=== PATIENT | male | born 1995 | race African-American/Black ===

== ENCOUNTER 2022-01-07 14:10 | Emergency (ER) | payer OTHER ==
[~2022-01-07] VITALS: Ht 172.7 cm; Wt 62.0 kg
[2022-01-07 14:13] VITALS: BP 113/79
[2022-01-07] MEDS ORDERED: PIPERACILLIN/TAZ 3.375G PREMIX 50 ML IV ONE (15:00)
[2022-01-07] MEDS ORDERED: SODIUM CHLORIDE 0.9% 1000ML BAG (SEPSIS BOLUS) IV ONE (15:00)
[2022-01-07 15:21] LABS: BASOPHILS % 0.4 % (0.0-2.0); EOSINOPHILS % 1.5 % (0.0-5.0); HEMOGLOBIN. 12.9 g/dL (14.0-18.0); LYMPHOCYTES % 13.7 % (20.0-50.0); MEAN CORPUSCULAR HEMOGLOBIN 31.5 pg (28.0-32.0); MEAN CORPUSCULAR VOLUME 92.5 fL (80.0-94.0); MEAN PLATELET VOLUME 8.2 fl (7.4-10.4); MONOCYTES % 4.1 % (2.0-8.0); NEUTROPHILS % 80.3 % (40.0-76.0); PLATELET 343 x1000/uL (130-400); RED BLOOD CELL COUNT 4.11 mill/uL (4.7-6.1); RED CELL DISTRIBUTION WIDTH 12.1 % (11.6-14.6)
[2022-01-07 15:30] LABS: CHLORIDE 110 mEq/L (98-107)
[2022-01-07] MEDS ORDERED: CEPH500C2 MT (17:39)
[2022-01-07] MEDS ORDERED: SULF1TAB48 MT (17:39)
== END 2022-01-07 18:19 ==
LOC: ER 14:10
DX: L76.82 Other postprocedural complications of skin and subcutaneous tissue (principal); T81.31XA Disruption of external operation (surgical) wound, not elsewhere classified, initial encounter; F43.10 Post-traumatic stress disorder, unspecified; Z90.49 Acquired absence of other specified parts of digestive tract; Y83.8 Other surgical procedures as the cause of abnormal reaction of the patient, or of later complication, without mention of misadventure at the time of the procedure; Y92.148 Other place in prison as the place of occurrence of the external cause
CPT/HCPCS: 36415; 74176; 80053; 83605; 83690; 85025; 87040; 96374; 99284; J2543; J7030